=== PATIENT | male | born 1995 | race Caucasian/White ===

== ENCOUNTER 2016-12-28 14:04 | Emergency (ER) | payer OTHER ==
[~2016-12-28] VITALS: Ht 188 cm; Wt 77.3 kg
[~2016-12-28 14:04] MED LIST: ANTIBIOTIC
[2016-12-28 14:09] VITALS: BP 166/98; PULSE 88; RESP 16; O2SAT 99
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
== END 2016-12-28 16:18 | disposition home or self-care (01) ==
LOC: SED 14:09
DX: S86.911A Strain of unspecified muscle(s) and tendon(s) at lower leg level, right leg, initial encounter (principal); V03.00XA Pedestrian on foot injured in collision with car, pick-up truck or van in nontraffic accident, initial encounter; Y93.01 Activity, walking, marching and hiking; Y92.410 Unspecified street and highway as the place of occurrence of the external cause; Y99.8 Other external cause status; Z88.8 Allergy status to other drugs, medicaments and biological substances